=== PATIENT | female | born 1995 | race Caucasian/White ===

== ENCOUNTER 2017-07-22 06:51 | Emergency (ER) | payer BC ==
[2017-07-22] MEDS ORDERED: FAMOTIDINE 20 MG/NACL 50 ML IV ONE (07:25)
[2017-07-22] MEDS ORDERED: ONDANSETRON 4 MG/2 ML VIAL IVP ONE (07:25)
[2017-07-22] MEDS ORDERED: NS 1,000 ML IV ONE ×2 (07:25)
--- NOTE | 2017-07-22 07:29 | EDPHY ---
H & P Time Seen by Provider: 07/22/17 07:12 HPI/ROS: HPI Nausea and vomiting. 22-year-old female by private vehicle. This patient is a student [employer]. She was out to dinner last night at [facility]. She ate steak as well as mashed potatoes and salad. She reports that about an hour after eating this meal she started feeling nauseous and this was followed by vomiting. This was at 8:00 p.m.. She reports that she has been vomiting all night and has not been able to keep any fluids down. She denies any significant abdominal pain. She denies diarrhea. Last bowel movement was yesterday. No bloody or melenic stool. No history of ill contacts. No foreign travel. ROS: Constitutional: No fever, no chills. No weakness. Eyes: No discharge. No changes in vision. ENT: No sore throat. No nasal congestion or rhinorrhea. Respiratory: No cough. No shortness of breath. Cardiac: No chest pain, no palpitations. Gastrointestinal: No abdominal pain, as above. Genitourinary: No hematuria. No dysuria or increased frequency with urination. Musculoskeletal: No back pain. No neck pain. No myalgias or arthralgias. Skin: No rashes. Neurological: No headache. No focal weakness or altered sensation. Past medical history: Denies any past medical history. She takes control pills. Social history: Student [employer]. Nonsmoker. Drinks alcohol socially. Physical Exam: General Appearance: Alert, no distress. This patient is responding to questions appropriately and in full sentences. This patient appears well- hydrated and well-nourished. Eyes: Pupils equal and round no pallor or injection. No lid edema, erythema or injection. Respiratory: There are no retractions, lungs are clear to auscultation with good air movement bilaterally. Cardiovascular: Regular rate and rhythm. No murmur. Gastrointestinal: Abdomen is soft and nontender, no masses, bowel sounds normal. No focal tenderness at McBurney's point. No Gardiner sign. Neurological: Motor sensory function is grossly intact. Cranial nerves are normal. Gait is normal. Skin: Warm and dry, no rashes. Musculoskeletal: Neck is supple and nontender. Extremities are symmetrical. All joints range without pain or impingement. Psychiatric: No agitation. No depression. Database: EKG: Imaging: Procedures: Emergency department course: IV placed. She was placed on a monitor. She was started on IV normal saline with 1-2 L to be given over the next 1-2 hours. She was initially given 4 mg of IV Zofran and 20 mg of IV Pepcid. 8:30 a.m., patient re-evaluated. Resting comfortably at this time. She states that she feels much better. Repeat abdominal exam she is soft, nontender nondistended. She is taking oral fluids. She states she feels comfortable going home. I feel she is safe for discharge. I will prescribe her Zofran for nausea. Follow-up and return to emergency department precautions reviewed. Dietary instructions reviewed. All of her questions were answered. She was discharged in good condition. Differential Diagnosis: The differential diagnosis on this patient includes but is not limited to food borne illness, viral gastritis. Bowel obstruction, pancreatitis, cholecystitis , appendicitis, other surgical etiology unlikely. This represents a partial list of diagnoses considered. These considerations are based on history, physical exam, past history, reassessment and diagnostic testing. Smoking Status: Never smoked Constitutional: Initial Vital Signs Temperature (C) 37.2 C 07/22/17 06:52 Heart Rate 116 H 07/22/17 06:52 Respiratory Rate 16 07/22/17 06:52 Blood Pressure 100/69 07/22/17 06:52 O2 Sat (%) 95 07/22/17 06:52 O2 Delivery Mode Room Air Allergies/Adverse Reactions: No Known Allergies Allergy (Verified 04/07/16 10:40) Home Medications: Medication Instructions Recorded Dextroamphetamine/Amphetamine 1 tab DAILY 08/17/15 [Adderall Xr 10 mg Capsule] Noreth-Ethinyl Estradiol/Iron 1 tab DAILY 08/17/15 [Generess Fe Chewable Tablet] Ambien 04/07/16 Ondansetron Odt [Zofran Odt 4 mg 4 mg PO Q4PRN PRN #10 tab 07/22/17 (*)] Medical Decision Making - Data Points Medications Given: Discontinued Medications Sodium Chloride (Ns) 1,000 mls @ 0 mls/hr IV EDNOW ONE; Wide Open PRN Reason: Protocol Stop: 07/22/17 07:26 Last Admin: 07/22/17 07:34 Dose: 1,000 mls Famotidine/Sodium Chloride (Pepcid 20 Mg (Premix)) 50 mls @ 200 mls/hr IV EDNOW ONE Stop: 07/22/17 07:39 Last Admin: 07/22/17 07:35 Dose: 50 mls Ondansetron HCl (Zofran) 4 mg IVP EDNOW ONE Stop: 07/22/17 07:26 Last Admin: 07/22/17 07:35 Dose: 4 mg Departure - Departure Disposition: Home, Routine, Self-Care Clinical Impression: Nausea and vomiting Condition: Good Instructions: Acute Nausea and Vomiting (ED) Additional Instructions: Read and follow provided instructions. Follow-up with your primary care physician at [facility] on Monday as needed. Take medication as prescribed for nausea. Keep well hydrated. A good fluid to drink is Gatorade mixed with water in a 1- 1 dilution over ice. Return to the emergency department for worsening symptoms, worsening abdominal pain, vomiting and inability to keep fluids down despite medications or other serious concerns. Referrals: NONE *PRIMARY CARE P,. [Primary Care Provider] - As per Instructions Prescriptions: Ondansetron Odt [Zofran Odt 4 mg (*)] 4 mg PO Q4PRN PRN #10 tab PRN Reason: For Nausea & Vomiting
[2017-07-22 09:39] VITALS: BP 101/63; PULSE 93; RESP 18; TEMP 99.1; O2SAT 94
== END 2017-07-22 09:47 | disposition home or self-care (01) ==
DX: R11.2 Nausea with vomiting, unspecified (principal); E86.9 Volume depletion, unspecified
CPT/HCPCS: 96374; J2405